=== PATIENT | female | born 1985 | race Caucasian/White ===

== ENCOUNTER 2018-04-10 13:22 | Outpatient (REF) | payer MEDICAID, SELFPAY ==
[2018-04-10 21:55] LABS: FREE T4 1.23 ng/dL (0.76-1.46); TSH 1.14 uIU/mL (0.358-3.74)
[2018-04-10 22:25] LABS: T4 13.1 ug/dL (4.5-12.5)
[2018-04-12 18:35] LABS: T3,Free 3.4 pg/ml (2.8-5.3)
[2018-04-12 18:47] LABS: T3, Total 110 ng/dl (97-169)
== END 2018-04-10 13:42 ==
LOC: NCHCN 13:22
PROVIDERS: PCP Family Medicine; Visit Provider Family Medicine
DX: E04.0 Nontoxic diffuse goiter (principal)
CPT/HCPCS: 84436; 84439; 84443; 84480; 84481

== ENCOUNTER 2019-01-26 11:53 | Outpatient (REF) | payer BC, SELFPAY ==
--- NOTE | 2019-01-26 09:55 | PAPFT_PTH ---
PATIENT: Rekha Marin LOC: [facility] U#:[id number] AGE/SX: 33/F ROOM: RE01/26/[address]: Peace Wiseman : 1985 BED: DIS: 01/26/2019 SPEC #: [id number] RECD: 01/26/19 12:26 STATUS: CHRIS REFavian #: [id number] RAI: 01/26/19 09:[address]: Peace Wiseman DEPT: [facility] Cytology RECD BY: Isela Whiteside ENTERED: 01/26/19 12:26 SP TYPE: PAPFT OTHR DR: Heather Simpson Tissues: 1 - CX/ENDOCX FOR PAP SMEARS Procedures: PAP THIN PREP/[facility] Screening HPV DNA PROBE Comments: [id number]
[2019-01-27 14:45] LABS: Chlamydia Result Negative; GC Result Negative; Specimen Description CERVIX
== END 2019-01-26 12:13 ==
LOC: LBN 11:53
PROVIDERS: PCP Family Medicine; Visit Provider Obstetrics & Gynecology Gynecology
DX: Z01.419 Encounter for gynecological examination (general) (routine) without abnormal findings (principal); Z11.3 Encounter for screening for infections with a predominantly sexual mode of transmission; Z12.4 Encounter for screening for malignant neoplasm of cervix; Z11.51 Encounter for screening for human papillomavirus (HPV)
CPT/HCPCS: 87491; 87591; 88142; 87624

== ENCOUNTER 2019-07-22 15:34 | Outpatient (REF) | payer BC, SELFPAY ==
[2019-07-22 22:55] LABS: Calculated LDL 105 mg/dL; Cholesterol 178 mg/dL (<200); HDL Cholesterol 54 mg/dL (40-60); TSH 10.51 uIU/mL (0.36-3.74); Triglyceride 99 mg/dL (<150)
[2019-07-22 23:14] LABS: FREE T4 1.14 ng/dL (0.76-1.46)
[2019-07-23 16:23] LABS: T3,Free 3.2 pg/mL (2.8-5.3)
[2019-07-23 16:38] LABS: T3, Total 112 ng/dL (97-169)
== END 2019-07-22 15:54 ==
LOC: NCHCN 15:34
PROVIDERS: PCP Family Medicine; Visit Provider Family Medicine
DX: E03.9 Hypothyroidism, unspecified (principal)
CPT/HCPCS: 80061; 84436; 84439; 84443; 84480; 84481

== ENCOUNTER 2020-01-14 16:28 | Outpatient (REF) | payer BC, SELFPAY ==
[2020-01-14 21:46] LABS: TSH (W/Ref FT4) 11.48 uIU/mL (0.36-3.74)
[2020-01-14 22:22] LABS: FREE T4 1.15 ng/dL (0.76-1.46)
== END 2020-01-14 16:48 ==
LOC: NCHCN 16:28
PROVIDERS: PCP Family Medicine; Visit Provider Family Medicine
DX: E03.9 Hypothyroidism, unspecified (principal)
CPT/HCPCS: 84439; 84443

== ENCOUNTER 2020-02-18 12:46 | Outpatient (REF) | payer BC, SELFPAY ==
[2020-02-18 20:23] LABS: FREE T4 1.23 ng/dL (0.76-1.46); TSH 1.37 uIU/mL (0.36-3.74)
[2020-02-20 17:18] LABS: T3,Free 4.7 pg/mL (2.8-5.3)
[2020-02-20 17:31] LABS: T3, Total 144 ng/dL (97-169)
== END 2020-02-18 13:06 ==
LOC: NCHCN 12:46
PROVIDERS: PCP Family Medicine; Visit Provider Family Medicine
DX: E03.9 Hypothyroidism, unspecified (principal)
CPT/HCPCS: 84439; 84443; 84480; 84481

== ENCOUNTER 2020-08-28 16:30 | Outpatient (REF) | payer BC, SELFPAY ==
[2020-08-28 13:47] LABS: FREE T4 1.06 ng/dL (0.76-1.46); TSH 2.79 uIU/mL (0.36-3.74)
== END 2020-08-28 16:31 | disposition home or self-care (01) ==
LOC: NCHCN 16:30
PROVIDERS: PCP Family Medicine; Visit Provider Family Medicine
DX: E03.9 Hypothyroidism, unspecified (principal)
CPT/HCPCS: 84439; 84443; 84481

== ENCOUNTER 2021-06-14 02:32 | Outpatient (CLI) | payer BC, SELFPAY ==
[2021-06-14 11:40] LABS: Abs Immature Grans 0.01 10^3/uL (0.0-0.06); Absolute Basophil Count 0.03 10^3/uL (0.0-0.2); Absolute Lymphocyte Count 1.97 10^3/uL (1.2-3.4); Absolute Monocyte Count 0.32 10^3/uL (0.1-0.8); Absolute Neutrophil Count 2.91 10^3/uL (1.2-6.7); Basophils % 0.5; Eosinophils % 5.4; HCT 39.2 % (36.0-46.0); HGB 13.1 g/dL (11.2-15.7); Immature Grans % 0.2; Lymphocytes % 35.6; MCHC 33.4 % (32.0-36.0); MCV 89.9 fL (80-95); MPV 9.1 fL (8.0-11.0); Monocytes % 5.8; Neutrophils % 52.5; Nucleated RBC 0 %; Platelet Count 300 10^3/uL (130-400); RBC 4.36 10^6/uL (3.93-5.22); RDW 11.9 % (11.7-14.6); RDW-SD 39.4 fL; WBC 5.54 10^3/uL (4.4-10.8)
[2021-06-14 13:00] LABS: ALT 23 U/L (14-59); AST 17 U/L (15-37); Albumin 4.5 g/dL (3.4-5.0); Alkaline Phosphatase 55 U/L (46-116); Anion Gap 7.2 mmol/L (3-11); BUN 13 mg/dL (7-18); Bilirubin, Total 0.5 mg/dL (0.2-1.0); CO2 31.8 mmol/L (21.0-32.0); CREATININE 0.7 mg/dL (0.55-1.02); Calcium 8.6 mg/dL (8.5-10.1); Chloride 101 mmol/L (98-107); Glucose 86 mg/dL (74-106); Sodium 140 mmol/L (136-145); TSH (W/Ref FT4) 11.34 uIU/mL (0.36-3.74); Total Protein 7.5 g/dL (6.4-8.2)
[2021-06-14 13:21] LABS: FREE T4 1.01 ng/dL (0.76-1.46)
== END 2021-06-14 02:33 | disposition home or self-care (01) ==
LOC: LBO 02:32
PROVIDERS: PCP Nurse Practitioner Family; Visit Provider Nurse Practitioner Family
DX: F32.A Depression, unspecified (principal); F41.9 Anxiety disorder, unspecified; R53.83 Other fatigue; E03.9 Hypothyroidism, unspecified
CPT/HCPCS: 36415; 80053; 84439; 84443; 85025

== ENCOUNTER 2021-09-07 12:45 | Outpatient (CLI) | payer BC, SELFPAY ==
[2021-09-07 13:23] LABS: FREE T4 1.06 ng/dL (0.76-1.46); TSH 4.06 uIU/mL (0.36-3.74)
[2021-09-07 22:13] LABS: T3,Free 3.4 pg/mL (2.8-5.3)
== END 2021-09-07 12:46 | disposition home or self-care (01) ==
LOC: LBO 12:49
PROVIDERS: PCP Nurse Practitioner Family; Visit Provider Nurse Practitioner Family
DX: E03.9 Hypothyroidism, unspecified (principal)
CPT/HCPCS: 36415; 84439; 84443; 84481

== ENCOUNTER 2022-05-21 03:41 | Outpatient (CLI) | payer MEDICAID, SELFPAY ==
[2022-05-21 14:17] LABS: TSH 2.15 uIU/mL (0.36-3.74)
[2022-05-21 17:29] LABS: Iron 92 ug/dL (50-170); Total Iron Binding Capacity 367 ug/dL (250-450); Transferrin Sat 25 % (15-50)
[2022-05-23 04:54] LABS: Vitamin D 25 Total 28.1 ng/mL (30-100)
== END 2022-05-21 03:42 | disposition home or self-care (01) ==
LOC: LBO 03:41
PROVIDERS: PCP Nurse Practitioner Family; Visit Provider Internal Medicine Endocrinology, Diabetes & Metabolism
DX: E89.0 Postprocedural hypothyroidism (principal); E55.9 Vitamin D deficiency, unspecified
CPT/HCPCS: 36415; 82306; 83540; 83550; 84443

== ENCOUNTER 2022-12-10 03:12 | Outpatient (CLI) | payer MEDICAID, SELFPAY ==
[2022-12-10 14:34] LABS: FREE T4 1.21 ng/dL (0.76-1.46); TSH 1.61 uIU/mL (0.36-3.74)
[2022-12-10 14:46] LABS: Vitamin D 25 Total 24.8 ng/mL (30-100)
[2022-12-10 14:48] LABS: C-Reactive Protein < 0.05 mg/dL (0.0-0.3)
[2022-12-10 15:09] LABS: Iron 89 ug/dL (50-170); Total Iron Binding Capacity 324 ug/dL (250-450); Transferrin Sat 27 % (15-50)
[2022-12-10 15:32] LABS: Vitamin B12 304 pg/mL (193-986)
[2022-12-10 22:23] LABS: T3, Total 127 ng/dL (97-169)
== END 2022-12-10 03:13 | disposition home or self-care (01) ==
PROVIDERS: PCP Nurse Practitioner Family; Visit Provider Internal Medicine Endocrinology, Diabetes & Metabolism
DX: E89.0 Postprocedural hypothyroidism (principal); E55.9 Vitamin D deficiency, unspecified; R53.83 Other fatigue; F41.8 Other specified anxiety disorders; Z79.899 Other long term (current) drug therapy
CPT/HCPCS: 36415; 82306; 82607; 83540; 83550; 84439; 84443; 84480; 86140

== ENCOUNTER 2023-03-14 02:11 | Outpatient (CLI) | payer MEDICAID, SELFPAY ==
[2023-03-14 14:50] LABS: TSH 1.78 uIU/mL (0.36-3.74)
[2023-03-14 15:27] LABS: Vitamin B12 296 pg/mL (193-986)
[2023-03-14 22:50] LABS: T3, Total 120 ng/dL (97-169)
== END 2023-03-14 02:12 | disposition home or self-care (01) ==
PROVIDERS: PCP Nurse Practitioner Family; Visit Provider Internal Medicine Endocrinology, Diabetes & Metabolism
DX: E89.0 Postprocedural hypothyroidism (principal); E55.9 Vitamin D deficiency, unspecified; R53.83 Other fatigue; Z79.899 Other long term (current) drug therapy
CPT/HCPCS: 36415; 82607; 84439; 84443; 84480

== ENCOUNTER 2023-10-07 05:02 | Outpatient (CLI) | payer MEDICAID, SELFPAY | END 2023-10-07 05:03 | disposition home or self-care (01) | LOC: LBO 05:02 | PROVIDERS: PCP Nurse Practitioner Family; Visit Provider Internal Medicine Endocrinology, Diabetes & Metabolism | DX: E89.0 Postprocedural hypothyroidism (principal) | CPT/HCPCS: 36415; 84443 ==

== ENCOUNTER 2023-11-21 01:52 | Outpatient (CLI) | payer MEDICAID, SELFPAY ==
[2023-11-21 09:23] LABS: Vitamin D 25 Total 35.2 ng/mL (30-100)
[2023-11-21 09:28] LABS: TSH (W/Ref FT4) 0.23 uIU/mL (0.36-3.74); Vitamin B12 340 pg/mL (193-986)
[2023-11-21 09:46] LABS: FREE T4 1.07 ng/dL (0.76-1.46)
== END 2023-11-21 01:53 | disposition home or self-care (01) ==
LOC: LBO 01:52
PROVIDERS: PCP Nurse Practitioner Family; Visit Provider Internal Medicine Endocrinology, Diabetes & Metabolism
DX: E89.0 Postprocedural hypothyroidism (principal); E55.9 Vitamin D deficiency, unspecified; R53.83 Other fatigue
CPT/HCPCS: 36415; 82306; 82607; 84439; 84443

== ENCOUNTER 2024-06-14 08:48 | Outpatient (REF) | payer MEDICAID, SELFPAY ==
--- NOTE | 2024-06-14 08:20 | PAPFT_PTH ---
PATIENT: Rekha Marin LOC: [facility] U#:[id number] AGE/SX: 38/F ROOM: RE06/14/[address]: Maria Guadalupe Castaneda NP : 1985 BED: DIS: 06/14/2024 SPEC #: [id number] RECD: 06/14/24 12:44 STATUS: CHRIS REQ #: [id number] RAI: 06/14/24 08:[address]: Maria Guadalupe Castaneda NP DEPT: [facility] Cytology RECD BY: Isela Whiteside ENTERED: 06/14/24 12:44 SP TYPE: PAPFT OTHR DR: Sejal Liu APRN Tissues: 1 - CX/ENDOCX FOR PAP SMEARS Procedures: PAP THIN PREP/[facility] Screening HPV DNA PROBE Comments: [id number] (HPV 16 & 18/45)
== END 2024-06-14 08:49 | disposition home or self-care (01) ==
LOC: LBN 08:48
PROVIDERS: PCP Nurse Practitioner Family; Visit Provider Nurse Practitioner Women's Health
DX: Z01.419 Encounter for gynecological examination (general) (routine) without abnormal findings (principal); Z12.4 Encounter for screening for malignant neoplasm of cervix; F41.9 Anxiety disorder, unspecified; F32.A Depression, unspecified
CPT/HCPCS: 88142; 87624

== ENCOUNTER 2025-03-14 07:35 | Outpatient (CLI) | payer MEDICAID, SELFPAY ==
[2025-03-14 10:35] LABS: TSH 1.66 uIU/mL (0.36-3.74)
[2025-03-14 11:13] LABS: Vitamin B12 466 pg/mL (193-986); Vitamin D 25 Total 44 ng/mL (30-100)
== END 2025-03-14 07:36 | disposition home or self-care (01) ==
LOC: LBO 03-15 07:36
PROVIDERS: PCP Internal Medicine Endocrinology, Diabetes & Metabolism; Visit Provider Internal Medicine Endocrinology, Diabetes & Metabolism
DX: E89.0 Postprocedural hypothyroidism (principal); E55.9 Vitamin D deficiency, unspecified; R53.83 Other fatigue; E53.8 Deficiency of other specified B group vitamins
CPT/HCPCS: 36415; 82306; 82607; 84443